=== PATIENT | female | born 1990 | race Caucasian/White ===

== ENCOUNTER 2017-05-17 19:32 | Emergency (ER) ==
[2017-05-17 19:45] VITALS: BP 117/77; TEMP 97.7; BMI 35.1
[2017-05-17] MEDS ORDERED: TORADOL IM STA (19:53)
--- NOTE | 2017-05-17 19:56 | ED.PDOC ---
General ED Provider: Dr. JANET SHARP Chief Complaint: Non-specific Complaint Stated Complaint: Been hurting in the left shoulder since 4 pm today, no injury. also she thinks she has miscarriage Time Seen by Physician: 19:54 Mode of Arrival: Walk-In Information Source: Patient Primary Care Provider: SUNDAR LOWRY Nursing and Triage Documentation Reviewed and Agree: Yes Musculoskeletal Complaint Exam - Shoulder Pain Complaint/Exam Mechanism of Injury: Reports: No known trauma Symptoms Are: Still present Timing: Constant Initial Severity: Mild Current Severity: Moderate Location: Reports: Discrete Character: Reports: Aching, Throbbing Alleviating: Reports: None Aggravating: Reports: Movement, Lifting Associated Signs and Symptoms: Denies: Swelling, Redness, Bruising, Fever, Weakness, Numbness, Tingling Non-Orthopedic Risk Factors: Reports: None DVT Risk Factors: Reports: None Septic Arthritis Risk Factors: Reports: None Related Surgical History: Reports: None Differential Diagnoses: Closed Fracture, Sprain Review of Systems - Review Of Systems Constitutional: Reports: No symptoms Eyes: Reports: No symptoms Ears, Nose, Mouth, Throat: Reports: No symptoms Respiratory: Reports: No symptoms Cardiac: Reports: No symptoms GI: Reports: No symptoms : Reports: No symptoms Musculoskeletal: Reports: Joint pain Skin: Reports: No symptoms Neurological: Reports: No symptoms Endocrine: Reports: No symptoms Hematologic/Lymphatic: Reports: No symptoms All Other Systems: Reviewed and Negative Past Medical History - Past Medical History Previously Healthy: Yes Endocrine: Reports: None Cardiovascular: Reports: None Respiratory: Reports: None Hematological: Reports: None Gastrointestinal: Reports: None Genitourinary: Reports: None Neuro/Psych: Reports: None Musculoskeletal: Reports: None Cancer: Reports: None Last Menstrual Period: now - Surgical History General Surgical History: Reports: Tonsillectomy - Family History Family History: Reports: None - Social History Smoking Status: Current every day smoker, Heavy tobacco smoker Smoking Cessation Counseling Time: > 10 min Hx Substance Use: No Alcohol Screening: Occasionally Physical Exam - Physical Exam Appearance: Well-appearing, Well-nourished, Obese Pain Distress: Mild Eyes: CRISTIANO, EOMI, Conjunctiva clear ENT: Ears normal, Nose normal, Oropharynx normal Respiratory: Airway patent, Breath sounds clear, Breath sounds equal, Respirations nonlabored Cardiovascular: RRR, Pulses normal, No rub, No murmur GI/: Soft, Nontender, No masses, Bowel sounds normal, No Organomegaly Musculoskeletal: No edema, No calf tenderness, Limited ROM, Limited strength Skin: Warm, Dry, Normal color Neurological: Sensation intact, Motor intact, Reflexes intact, Cranial nerves intact, Alert, Oriented Psychiatric: Affect appropriate, Mood appropriate Critical Care Note - Critical Care Note Total Time (mins): 0 Course - Course Orders, Labs, Meds: Lab Review 05/17/17 20:10 Urine Test Negative Orders Category Date Time Status URINALYSIS C & S IF INDICATED Stat LAB 05/17/17 20:10 Received URINE Stat LAB 05/17/17 20:10 Completed Ketorolac Tromethamine [Toradol] MEDS 05/17/17 19:53 Discontinued 30 mg IM ONCE STA SHOULDER, LEFT MIN 2V Stat RADS 05/17/17 19:53 Ordered Medications Discontinued Medications Generic Name Dose Route Start Last Admin Trade Name Freq PRN Reason Stop Dose Admin Ketorolac Tromethamine 30 mg 05/17/17 19:53 Toradol IM 05/17/17 19:54 ONCE STA Vital Signs: Temp Pulse Resp BP Pulse Ox 05/17/17 19:34 97.7 F 100 H 20 117/77 96 Departure - Departure Time of Disposition: 20:19 Disposition: HOME SELF-CARE Discharge Problem: Sprain of shoulder, left Qualifiers: Encounter type: initial encounter Shoulder sprain type: unspecified sprain Qualified Code(s): S43.402A - Unspecified sprain of left shoulder joint, initial encounter Instructions: Shoulder Sprain (ED) Condition: Good Pt referred to PMD for follow-up: Yes Additional Instructions: rest hot pack f/u with PMD Take medication with food. Prescriptions: Ibuprofen 600 mg PO BID #14 tablet Allergies/Adverse Reactions: Allergies No Known Allergies Allergy (Verified 08/12/16 23:14) Home Medications: Ambulatory Orders Ibuprofen 600 mg PO BID #14 tablet 05/17/17 Disposition Discussed With: Patient, Family
[2017-05-17 20:13] LABS: BILIRUBIN,URINE 1+ (NEGATIVE); KETONES,URINE Trace (NEGATIVE); LEUKOCYTE ESTERASE ,URINE Trace (NEGATIVE); NITRITE,URINE Negative (NEGATIVE); PROTEIN,URINE Trace (NEGATIVE); URINE, BLOOD 1+ (NEGATIVE)
[2017-05-17 20:14] LABS: URINE PREGNANCY INTERNAL QC INTERNAL QC VALID
[2017-05-17 20:19] LABS: ADD URINE MICROSCOPIC YES; BACTERIA,URINE 1+ (NOT PRESENT)
--- NOTE | 2017-05-17 20:36 | DI ---
Exam: Five views left shoulder Clinical indication: Left shoulder pain. Findings: There are no fractures, dislocations or other significant bony abnormalities. The visualized pulmona ry parenchyma and ribs are unremarkable. Impression: Negative radiographs of the left shoulder.
== END 2017-05-17 21:00 | disposition home or self-care (01) ==
LOC: ED 19:32
DX: S43.402A Unspecified sprain of left shoulder joint, initial encounter (principal); F17.210 Nicotine dependence, cigarettes, uncomplicated
CPT/HCPCS: 81001; 81025; 87086; 96372; 99283